=== PATIENT | male | born 1950 | race Asian ===

== ENCOUNTER 2018-01-02 05:56 | Day surgery (SDC) | payer OTHER ==
[2018-01-02] MEDS ORDERED: FENTAnyl 50 MCG/ML VIAL (08:04)
[2018-01-02] MEDS ORDERED: MIDAZOLAM 1 MG/ML 2 ML INJ (08:05)
== END 2018-01-02 11:07 | disposition home or self-care (01) ==
LOC: GIL 05:56
DX: K64.8 Other hemorrhoids (principal); K64.4 Residual hemorrhoidal skin tags; K57.90 Diverticulosis of intestine, part unspecified, without perforation or abscess without bleeding; Z86.010 Personal history of colon polyps; I10 Essential (primary) hypertension
CPT/HCPCS: 45378